=== PATIENT | female | born 1975 | race Caucasian/White ===

== ENCOUNTER 2019-02-24 07:58 | Day surgery (SDC) | payer OTHER ==
[~2019-02-24 07:58] MED LIST: CIPROFLOXACIN 400 MG in D5W 200 ML IVPB
[2019-02-24] MEDS ORDERED: FENTAnyl 50 MCG/ML VIAL ×2 (11:26→12:04)
[2019-02-24] MEDS ORDERED: MIDAZOLAM 1 MG/ML 2 ML INJ (11:26)
[2019-02-24] MEDS: IOHEXOL 300MG/ML 30 ML BTL INJ (12:09)
[2019-02-24] MEDS ORDERED: PROPOFOL 20 ML (12:22)
[2019-02-24] MEDS ORDERED: CIPROFLOXACIN 400MG/D5W 200 ML (12:22)
[2019-02-24] MEDS ORDERED: LIDOCAINE 2% (SDV) 5 ML INJ (12:22)
[2019-02-24] MEDS ORDERED: ONDANSETRON 4 MG INJ (12:23)
[2019-02-24] MEDS ORDERED: ETOMIDATE 20 MG INJ (12:23)
[2019-02-24] MEDS ORDERED: MEPERIDINE 25 MG INJ IV (13:00)
[2019-02-24] MEDS ORDERED: DIPHENHYDRAMINE 50 MG INJ IV (13:00)
[2019-02-24] MEDS ORDERED: METOCLOPRAMIDE 10 MG INJ IV (13:00)
[2019-02-24] MEDS ORDERED: FENTAnyl 50 MCG/ML VIAL IV (13:00)
[2019-02-24] MEDS ORDERED: HYDROmorphONE 1 MG/5 ML IV SYRINGE IV ×2 (13:00)
[2019-02-24] MEDS ORDERED: ONDANSETRON 4 MG INJ IV (13:00)
[2019-02-24] MEDS: ACETAMINOPHEN 500 MG TAB PO (14:05)
== END 2019-02-24 14:15 | disposition home or self-care (01) ==
LOC: SDS 07:58
DX: N20.2 Calculus of kidney with calculus of ureter (principal); E66.01 Morbid (severe) obesity due to excess calories; I10 Essential (primary) hypertension; E78.5 Hyperlipidemia, unspecified
CPT/HCPCS: 52356; 74430; 88300